=== PATIENT | female | born 1990 | race American Indian/Alaskan Native ===

== ENCOUNTER 2018-07-18 07:41 | Emergency (ER) | payer MEDICAID ==
[2018-07-18 07:50] VITALS: BP 130/84
[2018-07-18 09:05] LABS: HCG Qualitative,Urine Negative (Negative)
[2018-07-18 09:06] LABS: Bacteria,Urine 1+ /HPF (Negative); Bilirubin,Urine NEG (Negative); Blood,Urine NEG (Negative); Color,Urine Yellow (Yellow); Mucus,Urine 2+ /HPF; Protein,Urine <15 mg/dL mg/dL (Negative)
[2018-07-18 09:30] LABS: Hematocrit 41.3 % (30.3-42.9); Hemoglobin 13.8 gm/dl (10.1-14.3); Mean Corpuscular HGB Conc 33 % (30-34); Mean Corpuscular Volume 85 fl (79-97); Platelet Count 401 K/mm3 (140-440); Red Blood Count 4.87 M/mm3 (3.65-5.03); Red Cell Distribution Width 13.3 % (13.2-15.2)
--- NOTE | 2018-07-18 09:47 | Emergency Department Report ---
HPI - General Chief Complaint: Nausea/Vomiting/Diarrhea Time Seen by Provider: 07/18/18 08:23 - HPI HPI: Pt is a 28-year-old female who presents to the ER today with a one-day history of nausea vomiting weakness. She states that she feels dehydrated like when she was . She states that she has had a tubal ligation but is concerned for . She has no back pain no dysuria and no vaginal discharge. She states that she has noted nothing making her symptoms better or worse. ED Past Medical Hx - Past Medical History Previous Medical History?: No - Surgical History Past Surgical History?: Yes Additional Surgical History: TUBAL LIGATION - Social History Smoking Status: Current Every Day Smoker Substance Use Type: None - Medications Home Medications: Home Medications Medication Instructions Recorded Confirmed Last Taken Type Ondansetron [Zofran Odt] 4 mg PO Q8HR PRN #10 tab.rapdis 07/18/18 Unknown Rx Potassium Chloride 40 meq PO ONCE #1 day 07/18/18 Unknown Rx ED Review of Systems ROS: Stated complaint: HEADACHE/DEHYDRATED/FATIGUE Other details as noted in HPI Comment: All other systems reviewed and negative Physical Exam - Physical Exam Vital Signs: Vital Signs 07/18/18 07:49 Temperature 98.3 F Pulse Rate 79 Respiratory 18 Rate Blood Pressure 130/84 [Right] O2 Sat by Pulse 100 Oximetry Physical Exam: WDWN patient in NAD VS per RN flow sheet Alert and oriented to person, place and time. S1-S2. No S3 or S4. No systolic or diastolic murmur. No JVD. No pitting edema. Lungs clear to auscultation bilaterally anteriorly and posteriorly. Abdomen soft nontender bowel sounds x4 Moves all extremities well. Mood and affect appropriate. ED Course Vital Signs 07/18/18 07:49 Temperature 98.3 F Pulse Rate 79 Respiratory 18 Rate Blood Pressure 130/84 [Right] O2 Sat by Pulse 100 Oximetry ED Medical Decision Making - Lab Data Result diagrams: 07/18/18 09:03 07/18/18 09:03 - Medical Decision Making Lab Results 07/18/18 07/18/18 07/18/18 Range/Units 09:03 09:03 Unknown WBC 9.7 (4.5-11.0) K/mm3 RBC 4.87 (3.65-5.03) M/mm3 Hgb 13.8 (10.1-14.3) gm/dl Hct 41.3 (30.3-42.9) % MCV 85 (79-97) fl MCH 28 (28-32) pg MCHC 33 (30-34) % RDW 13.3 (13.2-15.2) % Plt Count 401 (140-440) K/mm3 Sodium 141 (137-145) mmol/L Potassium 3.4 L (3.6-5.0) mmol/L Chloride 100.3 (98-107) mmol/L Carbon Dioxide 26 (22-30) mmol/L Anion Gap 18 mmol/L BUN 7 (7-17) mg/dL Creatinine 0.6 L (0.7-1.2) mg/dL Estimated GFR > 60 ml/min BUN/Creatinine Ratio 12 % Glucose 109 H (65-100) mg/dL Calcium 8.9 (8.4-10.2) mg/dL Urine Color Yellow (Yellow) Urine Turbidity Cloudy (Clear) Urine pH 5.0 (5.0-7.0) Ur Specific [place] 1.024 (1.003-1.030) Urine Protein <15 mg/dl (Negative) mg/dL Urine Glucose (UA) Neg (Negative) mg/dL Urine Ketones Neg (Negative) mg/dL Urine Blood Neg (Negative) Urine Nitrite Neg (Negative) Ur Reducing Substances Not Reportable Urine Bilirubin Neg (Negative) Urine Ictotest Not Reportable Urine Urobilinogen 2.0 (<2.0) mg/dL Ur Leukocyte Esterase Neg (Negative) Urine WBC (Auto) 2.0 (0.0-6.0) /HPF Urine RBC (Auto) 4.0 (0.0-6.0) /HPF U Epithel Cells (Auto) 31.0 H (0-13.0) /HPF Urine Bacteria (Auto) 1+ (Negative) /HPF Urine Mucus 2+ /HPF Urine HCG, Qual Negative (Negative) Vital Signs 07/18/18 07:49 Temperature 98.3 F Pulse Rate 79 Respiratory 18 Rate Blood Pressure 130/84 [Right] O2 Sat by Pulse 100 Oximetry Preg neg. K has been supplemented. Discussed with patient the need to eat foods that are high in potassium such as bananas and oranges. Discussed normal labs with patient. She is being discharged home with PCP follow-up. - Differential Diagnosis ro preg/ro uti/ ro dehydration Critical care attestation.: If time is entered above; I have spent that time in minutes in the direct care of this critically ill patient, excluding procedure time. ED Disposition Clinical Impression: Hypokalemia, Vomiting Disposition: DC- TO HOME OR SELFCARE Is pt being admited?: No Does the pt Need Aspirin: No Condition: Stable Instructions: Hypokalemia (ED) Additional Instructions: DIET TOLERATED MEDS ORDERED TODAY IN ER FOLLOW INSTRUCTIONS ON THE BOTTLE FOLLOW UP PCP WITHIN 48 HOURS TO ENSURE YOU ARE GETTING BETTER ACTIVITY TOLERATED MOTRIN OR TYLENOL FOR PAIN OR FEVER RETURN TO THE ER FOR WORSENING SYMPTOMS NOT RELIEVED BY YOUR MEDICATIONS. eat foods high in potassium orange juice, bananas. LABS NORMAL EXCEPT POTASSIUM YOU LABS INDICATE NO DEHYDRATION OR INFECTION Prescriptions: Potassium Chloride 40 meq PO ONCE #1 day Ondansetron [Zofran Odt] 4 mg PO Q8HR PRN #10 tab.rapdis PRN Reason: Vomiting Referrals: CYNTHIA TORRE MD [Primary Care Provider] - 3-5 Days Time of Disposition: 10:19
[2018-07-18 09:54] LABS: BUN/Creatinine Ratio 12; Blood Urea Nitrogen 7 mg/dL (7-17); Calcium 8.9 mg/dL (8.4-10.2); Hemolysis Index 24
[2018-07-18] MEDS ORDERED: K-DUR PO ONE (10:08)
== END 2018-07-18 10:27 | disposition home or self-care (01) ==
LOC: ED 07:41
DX: E87.6 Hypokalemia (principal); R11.2 Nausea with vomiting, unspecified; E86.0 Dehydration; F17.200 Nicotine dependence, unspecified, uncomplicated; Z98.51 Tubal ligation status
CPT/HCPCS: 36415; 80048; 81001; 81025; 85027; 99283

== ENCOUNTER 2019-12-15 13:08 | Emergency (ER) | payer SELFPAY ==
[2019-12-15 13:26] VITALS: BP 133/81
--- NOTE | 2019-12-15 14:14 | Event Note ---
ED Screening Note Date of service: 12/15/19 Time: 14:12 ED Screening Note: Pt c/o dark urine with odor x 2 weeks and now has back pain and abdominal pain x 1 week also complains of sinus pressure and left sided headache x 1 week This initial assessment/diagnostic orders/clinical plan/treatment(s) is/are subject to change based on patients health status, clinical progression and re- assessment by fellow clinical providers in the ED. Further treatment and workup at subsequent clinical providers discretion. Patient/guardian urged not to elope from the ED as their condition may be serious if not clinically assessed and managed. Initial orders include: labs UA
[2019-12-15 15:46] LABS: HCG Qualitative,Urine Negative (Negative)
[2019-12-15 16:00] LABS: Bacteria,Urine 1+ /HPF (Negative); Bilirubin,Urine NEG (Negative); Blood,Urine NEG (Negative); Color,Urine Yellow (Yellow); Mucus,Urine FEW /HPF; Protein,Urine <15 mg/dL mg/dL (Negative); Urobilinogen,Urine < 2.0 mg/dL (<2.0)
== END 2019-12-15 16:53 | disposition left against medical advice (07) ==
LOC: ED 13:08
DX: R10.9 Unspecified abdominal pain (principal); Z53.21 Procedure and treatment not carried out due to patient leaving prior to being seen by health care provider
CPT/HCPCS: 81001; 81025